=== PATIENT | female | born 1990 | race Caucasian/White ===

== ENCOUNTER 2016-09-30 10:51 | Emergency (ER) | payer SELFPAY ==
[~2016-09-30 10:51] MED LIST: ACETAMINOPHEN PO; BACTRIM DS TABL1 TA1 PO; BACTRIM DS TABL1 TAB PO; BACTROBAN15 GM TOP; FLEXERIL PO; FLEXERIL10 M1 PO; IBUPROFEN PO; KEFLEX PO; KETOPROFEN PO; ORUDIS75 M1 PO; PEN-VEE K PO; PHENERGAN PO; PHENERGAN PR; PREDNISONE PO; TUSSIONEX PENN473 ML PO; ULTRAM PO; VICODIN 5/500 T1 TAB PO; VICODIN PO; VISCOUS LIDOCAINE; VOLTAREN75 MG PO; ZITHROMAX PO
== END 2016-09-30 13:23 | disposition left against medical advice (07) ==
LOC: CED 10:51
DX: Z53.21 Procedure and treatment not carried out due to patient leaving prior to being seen by health care provider (principal)